=== PATIENT | male | born 1950 | race Caucasian/White ===

== ENCOUNTER 2021-07-30 16:13 | Emergency (ER) | payer MEDICARE, OTHER ==
[~2021-07-30] VITALS: Ht 170.2 cm; Wt 80.7 kg
[2021-07-30] MEDS ORDERED: ASPIRIN 325 MG TAB PO ONE (16:30)
[2021-07-30] MEDS ORDERED: ASPIRIN 81 MG CHEW TAB ONE (16:47)
[2021-07-30] MEDS ORDERED: ASPIRIN EC81 MG PO (16:58)
[2021-07-30] MEDS ORDERED: METFORMIN HCL500 MG PO (16:58)
[2021-07-30] MEDS ORDERED: MULTI-VITAMIN1 EACH PO (16:58)
[2021-07-30] MEDS ORDERED: LISINOPRIL-HCT1 EACH (16:58)
[2021-07-30] MEDS ORDERED: PRAVASTATIN SOD40 MG (16:58)
[2021-07-30] MEDS ORDERED: VITAMIN C500 MG PO (16:58)
[2021-07-30] MEDS ORDERED: PEPCID20 MG PO (17:20)
== END 2021-07-30 17:29 | disposition home or self-care (01) ==
LOC: FSED 16:18
DX: R07.9 Chest pain, unspecified (principal); E78.5 Hyperlipidemia, unspecified; I10 Essential (primary) hypertension; E11.9 Type 2 diabetes mellitus without complications; F17.200 Nicotine dependence, unspecified, uncomplicated; Z71.6 Tobacco abuse counseling; Z79.84 Long term (current) use of oral hypoglycemic drugs; Z79.82 Long term (current) use of aspirin; Z79.899 Other long term (current) drug therapy; Z85.72 Personal history of non-Hodgkin lymphomas
CPT/HCPCS: 71045; 80053; 82553; 83880; 84484; 85025; 93005; 99284